=== PATIENT | male | born 1935 | race African-American/Black ===

== ENCOUNTER 2021-05-08 08:25 | Emergency (ER) | payer SELFPAY ==
[~2021-05-08] VITALS: Ht 172.7 cm; Wt 64.0 kg
[2021-05-08 08:53] VITALS: BP 103/52
== END 2021-05-08 12:12 | disposition home or self-care (01) ==
LOC: ER 08:31
DX: Z00.00 Encounter for general adult medical examination without abnormal findings (principal)
CPT/HCPCS: 99283